=== PATIENT | male | born 1970 | race Caucasian/White ===

== ENCOUNTER 2017-07-03 17:41 | Emergency (ER) | payer OTHER ==
[~2017-07-03] VITALS: Ht 170.2 cm; Wt 111.8 kg
[2017-07-03 17:50] VITALS: Ht 170.2 cm; Wt 111.8 kg
[2017-07-03] MEDS ORDERED: LORA-741 PO (17:58)
[2017-07-03] MEDS ORDERED: ACETAMINOPHEN IV 100 ML IV STA (18:09)
--- NOTE | 2017-07-03 18:14 | EMERGENCY ROOM VISIT NOTE ---
History Report prepared by [place]: Mateus Judge Under the Supervision of: Dr. Ankit Youngblood M.D. First contact with patient: 17:54 Chief Complaint: ABDOMINAL PAIN Stated Complaint: STOMACH ACHE History of Present Illness The patient is a 47 year old male who presents to the Emergency Room with complaints of intermittent left lower quadrant abdominal pain that began four days ago. He rates his discomfort as a 9/10 in severity. He reports that the pain is worsened with laying down. The patient states that he is lactose intolerant and ate cheese five days ago. He reports that four days ago he developed left lower quadrant abdominal pain, eye swelling, joint pain, and back pain. The patient states that he went to the [facility] three days ago and was given Gas-x and extra strength Tylenol. He reports that he has not felt relieved of symptoms, which caused him to buy a probiotic drink. The patient states that he had a bowel movement this morning, which he reports was hard. He reports he has been straining to have a bowel movement for the last four days. The patient reports he has been febrile and experiencing diaphoresis. He denies chills, cough, congestion, diarrhea, vomiting, passing gas, abdominal surgeries , a history of colitis, Chron's disease, hematuria, urinary burning. The patient reports he does smoke marijuana and drink alcohol once a month. Source of History: patient Onset: four days ago Position: abdomen (LLQ) Symptom Intensity: 9/10 Timing: intermittent Modifying Factors (Relieving): tylenol, other (Gas-x, Probiotic) Associated Symptoms: + fevers, + diaphoresis, + back pain, No chills, No cough, No vomiting, No diarrhea, No urinary symptoms Note: Associated symptoms: Review of Systems See HPI for pertinent positives and negatives. A total of ten systems were reviewed and were otherwise negative. Past Medical & Surgical Medical Problems: (1) Lactose intolerance Family History Hypertension Social History Smoking Status: Never Smoker Alcohol Use: occasionally Drug Use: marijuana Occupation Status: employed Current/Historical Medications Scheduled Ciprofloxacin Hcl (Cipro), 500 MG PO BID Metronidazole (Flagyl), 500 MG PO TID Ondasetron Odt (Zofran Odt), 4 MG SL Q6H Scheduled PRN Lorazepam (Ativan), 1 TAB PO UD PRN for Anxiety Allergies Coded Allergies: No Known Allergies (Unverified , 07/03/17) Physical Exam Vital Signs Date Time Temp Pulse Resp B/P (MAP) Pulse Ox O2 Delivery O2 Flow Rate FiO2 07/03/17 22:16 70 16 155/96 98 07/03/17 20:57 37.2 76 16 98 Room Air 07/03/17 18:32 77 07/03/17 17:50 37.2 75 20 134/80 96 Room Air Physical Exam GENERAL: Awake, alert, well-appearing, in no distress HENT: Normocephalic, atraumatic. Dry mucous membranes. EYES: Normal conjunctiva. Sclera non-icteric. NECK: Supple. No nuchal rigidity. FROM. No JVD. RESPIRATORY: Clear to auscultation. CARDIAC: Regular rate, normal rhythm. Extremities warm and well perfused. Pulses equal. ABDOMEN: Soft, non-distended. Moderate LLQ tenderness to palpation. No peritoneal signs. No rebound or guarding. No masses. RECTAL: Deferred. MUSCULOSKELETAL: Chest examination reveals no tenderness. The back is symmetrical on inspection without obvious abnormality. There is no CVA tenderness to palpation. No joint edema. LOWER EXTREMITIES: Calves are equal size bilaterally and non-tender. No edema. No discoloration. NEURO: Normal sensorium. No sensory or motor deficits noted. SKIN: No rash or jaundice noted. Medical Decision & Procedures ER Provider Diagnostic Interpretation: Radiology results as stated below per my review and radiologist interpretation: CT SCAN OF THE ABDOMEN AND PELVIS WITH IV CONTRAST CLINICAL HISTORY: Left lower quadrant abdominal pain. COMPARISON STUDY: No priors. TECHNIQUE: Following the IV administration of 94 cc of Optiray 320, CT scan of the abdomen and pelvis is performed from the lung bases to the proximal femora. Images are reviewed in the axial, sagittal, and coronal planes. IV contrast was administered without complication. A dose lowering technique was utilized adhering to the principles of ALARA. CT DOSE: 802.25 mGy.cm FINDINGS: Lung bases: The heart is normal in size and without pericardial effusion. The lung bases are clear noting dependent atelectasis. There is a tiny hiatal hernia. Liver: The contrast-enhanced liver is enlarged, measuring 20.8 cm in length. The liver is normal in contour and attenuation. There is no intrahepatic biliary ductal dilatation. The hepatic veins and portal veins are patent. Gallbladder: Unremarkable. Spleen: Normal in size and attenuation. Pancreas: Unremarkable. Adrenal glands: Unremarkable. Kidneys: The contrast enhanced kidneys are normal in size and without hydronephrosis. The kidneys enhance symmetrically. Abdominal vasculature: The abdominal aorta is normal in course and caliber. Bowel: There is mild diverticulosis of left colon. There is wall thickening and edema with pericolonic infiltration and trace fluid involving the distal descending/proximal sigmoid colon consistent with acute diverticulitis. No abscess is seen. There is no bowel obstruction. The appendix is well-visualized and normal. Peritoneum: There is no intraperitoneal free air or abdominal ascites. There is a small fat-containing umbilical hernia. Lymphadenopathy: None. Pelvic viscera: The bladder, prostate, and seminal vesicles are normal as visualized. Skeletal structures: No lytic or blastic lesions are seen. Mild arthritic change is seen in the left hip. IMPRESSION: 1. Findings are consistent with acute diverticulitis of the distal descending/proximal sigmoid colon. No intraperitoneal free air is seen and there is no evidence of abscess. 2. Hepatomegaly. Electronically signed by: Don Linares M.D. 07/03/2017 7:39 PM Dictated Date/Time: 07/03/2017 7:34 PM Laboratory Results 07/03/17 18:31 Red Blood Count 4.28, Mean Corpuscular Volume 88.8, Mean Corpuscular Hemoglobin 31.5, Mean Corpuscular Hemoglobin Concent 35.5, Mean Platelet Volume 10.4, Neutrophils (%) (Auto) 76.9, Lymphocytes (%) (Auto) 14.6, Monocytes (%) (Auto) 7.0, Eosinophils (%) (Auto) 1.0, Basophils (%) (Auto) 0.2, Neutrophils # (Auto) 10.18, Lymphocytes # (Auto) 1.94, Monocytes # (Auto) 0.93, Eosinophils # (Auto) 0.13, Basophils # (Auto) 0.03 07/03/17 18:31 Test 07/03/17 18:31 White Blood Count 13.25 K/uL (4.8-10.8) Red Blood Count 4.28 M/uL (4.7-6.1) Hemoglobin 13.5 g/dL (14.0-18.0) Hematocrit 38.0 % (42-52) Mean Corpuscular Volume 88.8 fL (80-100) Mean Corpuscular Hemoglobin 31.5 pg (25-34) Mean Corpuscular Hemoglobin Concent 35.5 g/dl (32-36) Platelet Count 219 K/uL (130-400) Mean Platelet Volume 10.4 fL (7.4-10.4) Neutrophils (%) (Auto) 76.9 % Lymphocytes (%) (Auto) 14.6 % Monocytes (%) (Auto) 7.0 % Eosinophils (%) (Auto) 1.0 % Basophils (%) (Auto) 0.2 % Neutrophils # (Auto) 10.18 K/uL (1.4-6.5) Lymphocytes # (Auto) 1.94 K/uL (1.2-3.4) Monocytes # (Auto) 0.93 K/uL (0.11-0.59) Eosinophils # (Auto) 0.13 K/uL (0-0.5) Basophils # (Auto) 0.03 K/uL (0-0.2) RDW Standard Deviation 41.9 fL (36.4-46.3) RDW Coefficient of Variation 13.1 % (11.5-14.5) Immature Granulocyte % (Auto) 0.3 % Immature Granulocyte # (Auto) 0.04 K/uL (0.00-0.02) Erythrocyte Sedimentation Rate 55 mm/hr (0-14) Anion Gap 5.0 mmol/L (3-11) Est Creatinine Clear Calc Drug Dose 98.4 ml/min Estimated GFR () 90.8 Estimated GFR (Non- 78.4 BUN/Creatinine Ratio 12.1 (10-20) Lactic Acid Level 0.9 mmol/L (0.4-2.0) Calcium Level 9.1 mg/dl (8.5-10.1) Total Bilirubin 0.4 mg/dl (0.2-1) Direct Bilirubin 0.1 mg/dl (0-0.2) Aspartate Amino Transf (AST/SGOT) 18 U/L (15-37) Alanine Aminotransferase (ALT/SGPT) 38 U/L (12-78) Alkaline Phosphatase 83 U/L (45-117) C-Reactive Protein 7.96 mg/dl (0-0.29) Total Protein 8.1 gm/dl (6.4-8.2) Albumin 3.5 gm/dl (3.4-5.0) Lipase 86 U/L (73-393) Laboratory results reviewed by me Medications Administered Medications (Trade) Dose Ordered Sig/Jesus Route Start Time Stop Time Status Last Admin Dose Admin Acetaminophen 100 ml @ 400 mls/hr NOW STAT IV 07/03/17 18:09 07/03/17 18:23 DC 07/03/17 18:39 400 MLS/HR Ciprofloxacin/ Dextrose (Cipro / D5W) 400 mg NOW STAT IV 07/03/17 19:43 07/03/17 19:45 DC 07/03/17 20:02 400 MG Metronidazole (Flagyl / Nss) 500 mg NOW STAT IV 07/03/17 19:43 07/03/17 19:45 DC 07/03/17 19:43 500 MG Sodium Chloride 2,000 ml @ 999 mls/hr Q2H1M STAT IV 07/03/17 19:44 07/03/17 21:44 DC 07/03/17 20:02 999 MLS/HR Ciprofloxacin (Cipro Tab) 500 mg NOW STAT PO 07/03/17 20:15 07/03/17 20:17 DC 07/03/17 20:57 500 MG Metronidazole (Flagyl Tab) 500 mg NOW STAT PO 07/03/17 20:15 07/03/17 20:17 DC 07/03/17 20:57 500 MG ED Course 175: The patient was evaluated in room C09. A complete history and physical exam was performed. 1952: I reevaluated the patient and he is doing well. I updated him on the results. Medical Decision I reviewed the patient's past medical history, medications, and the nursing notes as described above. The patient's presentation and history were concerning for diverticulitis, gastroenteritis, colitis, bowel obstruction, renal stone, UTI, pyelonephritis, aortic aneurysm, aortic dissection, among others. The patient is a 47-year-old gentleman with a past medical history of lactose intolerance who presents emergency department with persistent left lower quadrant pain after having cheese on Tuesday per . On arrival the patient is no acute distress, afebrile stable vital signs. On exam the patient has moderate left lower quadrant tenderness to palpation without peritoneal signs. Labs with WBC 13, ESR 55, CRP 7. Lactate within normal limits. CT demonstrates acute sigmoid diverticulitis with no evidence of abscess or perforation. We will give the patient his first dose of antibiotics via IV. Otherwise patient continues to be well-appearing. Findings and plan for follow- up reviewed with patient. Patient agreeable and d/c'd per discharge instructions. Medication Reconcilliation Current Medication List: was personally reviewed by me Blood Pressure Screening Patient's blood pressure: Elevated blood pressure Blood pressure disposition: Elevated BP felt to be situational Impression Primary Impression: Diverticulitis of sigmoid colon Scribe Attestation The scribe's documentation has been prepared under my direction and personally reviewed by me in its entirety. I confirm that the note above accurately reflects all work, treatment, procedures, and medical decision making performed by me. Departure Information Dispostion Home / Self-Care Prescriptions Ondasetron Odt (ZOFRAN ODT) 4 Mg Tab 4 MG SL Q6H for Nausea, #10 TAB Prov: Ankit Youngblood M.D. 07/03/17 Metronidazole (Flagyl) 500 Mg Tab 500 MG PO TID, #30 TAB Prov: Ankit Youngblood M.D. 07/03/17 Ciprofloxacin Hcl (CIPRO) 500 Mg Tab 500 MG PO BID for 10 Days, #20 TAB Prov: Ankit Youngblood M.D. 07/03/17 Referrals No Doctor, Assigned (PCP) Patient Instructions ED Diverticulitis, My [facility] Additional Instructions Please follow up with your primary care physician in the next 1-3 days for re- evaluation. You were found to have diverticulitis. Otherwise, your exam, lab results, and CT scan did not show signs of an emergent condition at this time. Acetaminophen for pain as needed. Antibiotics as directed. Zofran as needed for nausea. Begin with a clear liquid diet and advance slowly as tolerated. Drink plenty of fluids to ensure hydration. Return to the emergency department for worsening symptoms as described in the accompanying instructions.
[2017-07-03] MEDS ORDERED: OPTIRAY 320 IV PRN (18:15)
[2017-07-03 18:43] LABS: BASO % 0.2 %; BASO ABS # 0.03 K/uL (0-0.2); EOS ABS # 0.13 K/uL (0-0.5); HEMOGLOBIN 13.5 g/dL (14.0-18.0); IG# 0.04 K/uL (0.00-0.02); LYMPH % 14.6 %; LYMPH ABS # 1.94 K/uL (1.2-3.4); MEAN CELL VOLUME 88.8 fL (80-100); MEAN CORPUSCULAR HEMOGLOBIN 31.5 pg (25-34); MEAN CORPUSCULAR HGB CONC 35.5 g/dl (32-36); MEAN PLATELET VOLUME 10.4 fL (7.4-10.4); MONO ABS # 0.93 K/uL (0.11-0.59); NEUT % 76.9 %; NEUT ABS # 10.18 K/uL (1.4-6.5); PLATELET COUNT 219 K/uL (130-400); RED CELL DISTRIBUTION WIDTH CV 13.1 % (11.5-14.5); RED CELL DISTRIBUTION WIDTH SD 41.9 fL (36.4-46.3); WHITE BLOOD COUNT 13.25 K/uL (4.8-10.8)
[2017-07-03 18:59] LABS: ALBUMIN 3.5 gm/dl (3.4-5.0); CALCIUM 9.1 mg/dl (8.5-10.1); CREATININE 1.12 mg/dl (0.60-1.40); POTASSIUM 3.9 mmol/L (3.5-5.1)
[2017-07-03 19:02] LABS: TOTAL PROTEIN 8.1 gm/dl (6.4-8.2)
--- NOTE | 2017-07-03 19:40 | DIAGNOSTIC IMAGING REPORT ---
CT SCAN OF THE ABDOMEN AND PELVIS WITH IV CONTRAST CLINICAL HISTORY: Left lower quadrant abdominal pain. COMPARISON STUDY: No priors. TECHNIQUE: Following the IV administration of 94 cc of Optiray 320, CT scan of the abdomen and pelvis is performed from the lung bases to the proximal femora. Images are reviewed in the axial, sagittal, and coronal planes. IV contrast was administered without complication. A dose lowering technique was utilized adhering to the principles of ALARA. CT DOSE: 802.25 mGy.cm FINDINGS: Lung bases: The heart is normal in size and without pericardial effusion. The lung bases are clear noting dependent atelectasis. There is a tiny hiatal hernia. Liver: The contrast-enhanced liver is enlarged, measuring 20.8 cm in length. The liver is normal in contour and attenuation. There is no intrahepatic biliary ductal dilatation. The hepatic veins and portal veins are patent. Gallbladder: Unremarkable. Spleen: Normal in size and attenuation. Pancreas: Unremarkable. Adrenal glands: Unremarkable. Kidneys: The contrast enhanced kidneys are normal in size and without hydronephrosis. The kidneys enhance symmetrically. Abdominal vasculature: The abdominal aorta is normal in course and caliber. Bowel: There is mild diverticulosis of left colon. There is wall thickening and edema with pericolonic infiltration and trace fluid involving the distal descending/proximal sigmoid colon consistent with acute diverticulitis. No abscess is seen. There is no bowel obstruction. The appendix is well-visualized and normal. Peritoneum: There is no intraperitoneal free air or abdominal ascites. There is a small fat-containing umbilical hernia. Lymphadenopathy: None. Pelvic viscera: The bladder, prostate, and seminal vesicles are normal as visualized. Skeletal structures: No lytic or blastic lesions are seen. Mild arthritic change is seen in the left hip. IMPRESSION: 1. Findings are consistent with acute diverticulitis of the distal descending/proximal sigmoid colon. No intraperitoneal free air is seen and there is no evidence of abscess. 2. Hepatomegaly. Electronically signed by: Don Linares M.D. 07/03/2017 7:39 PM Dictated Date/Time: 07/03/2017 7:34 PM
[2017-07-03] MEDS ORDERED: METRONIDAZOLE 500MG / 100ML NSS IV STA (19:43)
[2017-07-03] MEDS ORDERED: CIPROFLOXACIN 400MG / 200ML D5W IV STA (19:43)
[2017-07-03] MEDS ORDERED: SODIUM CHLORIDE 0.9% 1000ML 2,000 ML IV STA (19:44)
[2017-07-03] MEDS ORDERED: CIPR-255 PO (20:11)
[2017-07-03] MEDS ORDERED: METR-163 PO (20:11)
[2017-07-03] MEDS ORDERED: ONDA4TAB10 SL (20:14)
[2017-07-03] MEDS ORDERED: METRONIDAZOLE 250 MG TAB PO STA (20:15)
[2017-07-03] MEDS ORDERED: CIPROFLOXACIN 500 MG TAB PO STA (20:15)
[2017-07-03 20:57] VITALS: TEMP 37.2
[2017-07-03 22:16] VITALS: BP 155/96; PULSE 70; O2SAT 98
== END 2017-07-03 22:16 | disposition home or self-care (01) ==
LOC: C.EDB 17:44 → C.EDC 22:16
DX: K57.32 Diverticulitis of large intestine without perforation or abscess without bleeding (principal); R03.0 Elevated blood-pressure reading, without diagnosis of hypertension; H57.8 Other specified disorders of eye and adnexa; M54.9 Dorsalgia, unspecified; M25.50 Pain in unspecified joint; E73.9 Lactose intolerance, unspecified; R61 Generalized hyperhidrosis; F12.90 Cannabis use, unspecified, uncomplicated; Z82.49 Family history of ischemic heart disease and other diseases of the circulatory system

== ENCOUNTER → 2017-07-06 | Outpatient (CLI) | payer OTHER ==
[~2017-07-06] MED LIST: CIPR-255 PO; LORA-741 PO; METR-163 PO; ONDA4TAB10 SL
[2017-07-06 15:42] LABS: BASO % 0.5 %; BASO ABS # 0.04 K/uL (0-0.2); EOS % 0.8 %; EOS ABS # 0.07 K/uL (0-0.5); HEMATOCRIT 40.1 % (42-52); IG# 0.04 K/uL (0.00-0.02); LYMPH % 19.6 %; LYMPH ABS # 1.71 K/uL (1.2-3.4); MEAN CELL VOLUME 89.5 fL (80-100); MEAN CORPUSCULAR HEMOGLOBIN 31.3 pg (25-34); MEAN CORPUSCULAR HGB CONC 34.9 g/dl (32-36); MEAN PLATELET VOLUME 10.4 fL (7.4-10.4); MONO % 6.5 %; MONO ABS # 0.57 K/uL (0.11-0.59); NEUT % 72.1 %; NEUT ABS # 6.28 K/uL (1.4-6.5); PLATELET COUNT 268 K/uL (130-400); RED CELL DISTRIBUTION WIDTH CV 12.9 % (11.5-14.5); RED CELL DISTRIBUTION WIDTH SD 42.2 fL (36.4-46.3); WHITE BLOOD COUNT 8.71 K/uL (4.8-10.8)
[2017-07-06 15:59] LABS: ALBUMIN 3.5 gm/dl (3.4-5.0); ALT/SGPT 42 U/L (12-78); BLOOD UREA NITROGEN 8 mg/dl (7-18); CALCIUM 9.3 mg/dl (8.5-10.1); CARBON DIOXIDE 28 mmol/L (21-32); GLUCOSE 116 mg/dl (70-99); POTASSIUM 4.1 mmol/L (3.5-5.1); SODIUM 136 mmol/L (136-145)
[2017-07-06 16:01] LABS: ALKALINE PHOSPHATASE 79 U/L (45-117); AST/SGOT 27 U/L (15-37); TOTAL PROTEIN 8.2 gm/dl (6.4-8.2)
== END | disposition home or self-care (01) ==
LOC: C.LAB 14:45
PROVIDERS: ATTEND Family Medicine
DX: K57.92 Diverticulitis of intestine, part unspecified, without perforation or abscess without bleeding (principal)

== ENCOUNTER → 2017-08-02 | Outpatient (CLI) | payer OTHER ==
--- NOTE | 2017-08-02 13:15 | DIAGNOSTIC IMAGING REPORT ---
L FINGER(S) MIN 2 VIEWS ROUTINE CLINICAL HISTORY: 47 years-old Male presenting with PAIN IN UNSPECIFIED FINGERS LEFT, crush injury. TECHNIQUE: Frontal, oblique, and lateral views of the left third and fourth fingers were obtained. COMPARISON: None. FINDINGS: Comminuted nondisplaced fracture of the tuft of the distal phalanx of the fourth finger. Fracture planes do not extend into the distal interphalangeal joint. No acute osseous injury of the third finger. No malalignment. IMPRESSION: Comminuted fracture of the tuft of the distal phalanx of the fourth finger. Electronically signed by: Mitul Avila M.D. 08/02/2017 1:14 PM Dictated Date/Time: 08/02/2017 1:13 PM
== END | disposition home or self-care (01) ==
LOC: C.RAD1850 13:04
PROVIDERS: ATTEND Student in an Organized Health Care Education/Training Program
DX: M79.646 Pain in unspecified finger(s) (principal); S62.635A Displaced fracture of distal phalanx of left ring finger, initial encounter for closed fracture; X58.XXXA Exposure to other specified factors, initial encounter

== ENCOUNTER → 2017-08-16 | Outpatient (CLI) | payer OTHER ==
--- NOTE | 2017-08-16 14:45 | DIAGNOSTIC IMAGING REPORT ---
L HAND MIN 3 VIEWS CLINICAL HISTORY: 47 years-old Male presenting with LEFT 4TH FINGER PAIN. TECHNIQUE: Frontal, oblique, and lateral views of the left hand were obtained. COMPARISON: 08/02/2017. FINDINGS: Redemonstration of the comminuted fracture of the tuft of the distal phalanx of the fourth finger. No change in alignment. Decreased soft tissue swelling regionally. No new evidence of an acute fracture or malalignment. No advanced degenerative change. No radiographic soft tissue abnormality. IMPRESSION: Redemonstration of the comminuted fracture of the tuft of the distal phalanx of the left fourth finger. No new malalignment or new osseous abnormality. Electronically signed by: Mitul Avila M.D. 08/16/2017 2:44 PM Dictated Date/Time: 08/16/2017 2:43 PM
== END | disposition home or self-care (01) ==
LOC: C.RDSM 14:33
PROVIDERS: ATTEND Internal Medicine
DX: S62.609A Fracture of unspecified phalanx of unspecified finger, initial encounter for closed fracture (principal); X58.XXXA Exposure to other specified factors, initial encounter

== ENCOUNTER → 2017-12-06 | Outpatient (CLI) | payer OTHER ==
[~2017-12-06] MED LIST changes: +HYDR-5688 PO; -LORA-741 PO; -METR-163 PO
--- NOTE | 2017-12-06 11:17 | DIAGNOSTIC IMAGING REPORT ---
L HAND MIN 3 VIEWS CLINICAL HISTORY: LEFT HAND FX trauma. Pain. COMPARISON: 08/16/2017 DISCUSSION: Partial healing of the comminuted fracture tuft distal phalanx fourth finger. All remaining osseous structures are unremarkable. No evidence of dislocation. Alignment remains anatomic. There is no evidence for soft tissue swelling. IMPRESSION: Considerable interval healing of a comminuted fracture tuft distal phalanx fourth finger. Alignment remains anatomic. The above report was generated using voice recognition software. It may contain grammatical, syntax or spelling errors. Electronically signed by: Rahul Peraza M.D. 12/06/2017 11:15 AM Dictated Date/Time: 12/06/2017 11:14 AM
== END | disposition home or self-care (01) ==
LOC: C.RDSM 09:46
PROVIDERS: ATTEND Internal Medicine
DX: S62.635A Displaced fracture of distal phalanx of left ring finger, initial encounter for closed fracture (principal); X58.XXXA Exposure to other specified factors, initial encounter